=== PATIENT | female | born 2000 | race Hispanic/Latino ===

== ENCOUNTER 2021-04-03 09:29 | Outpatient (CLI) | payer BC, OTHER ==
[2021-04-03 23:06] LABS: SARS-CoV-2 PCR by NAA Not Detected (NotDetected)
== END 2021-04-03 09:30 | disposition home or self-care (01) ==
LOC: CSHLAB 09:29
PROVIDERS: ATTEND Student in an Organized Health Care Education/Training Program
DX: Z20.822 Contact with and (suspected) exposure to COVID-19 (principal)
CPT/HCPCS: U0003; U0005

== ENCOUNTER 2021-04-06 16:50 | Inpatient (IN) | payer BC, OTHER ==
[2021-04-06 12:35] LABS: Hemoglobin 11.1 g/dL (12.0-15.5); Mean Corpuscular HGB CONC 31.8 g/dL (32.0-36.0); Mean Corpuscular Hemoglobin 26.2 pg (27.0-33.0); Mean Corpuscular Volume 82.3 fl (81.6-98.3); Mean Platelet Volume 10.9 fl (7.4-10.4); Platelet Count 255 10x3/uL (150-450); RBC Distribution Width 16.1 % (11.5-14.5); Red Blood Cell (RBC) Count 4.24 10x6/uL (3.90-5.03)
[2021-04-06 12:41] VITALS: BMI 35.6
[2021-04-06 13:08] LABS: Hep B Surf Ag Non-Reactive S/CO (NonReactive); Syphilis Antibody Nonreactive (Nonreactive); Syphilis Antibody Index 0.07 S/CO (<1.00 Non-Reactive)
[2021-04-06 13:12] LABS: HBSAg Index 0.17 S/CO (0-0.99)
[~2021-04-06 16:50] MED LIST: Carboprost 250 MCG/ML AMP IM PRN; Ibuprofen 800 MG TAB PO PRN; Lactated Ringer's 1,000 ML IV SCH; Lidocaine 1% (PF) 30 ML VIAL SC PRN; Methylergonovine 0.2 MG/ML VIAL IM PRN; Misoprostol 100 MCG TAB VAG SCH; Misoprostol 200 MCG TAB PR PRN; NS w/ Oxytocin 30 units 500 ML IV SCH; Ondansetron PF 4 MG/2 ML Vial IVP PRN; Penicillin G 2.5 MILL.units 2.5 MILL.UNITS in Premix Bag 1 BAG IVPB SCH; Penicillin G Potassium 5 MILL.UNITS in Sodium Chloride 0.9% 100 ML IVPB SCH; Promethazine HCl 25 MG/ML VIAL IM PRN; hydrALAZINE 20 MG/ML VIAL SLOW IVP PRN
[2021-04-06] MEDS ORDERED: ceFAZolin 2 GM/Dextrose 50 ML IVPB ONE (17:33)
[2021-04-06] MEDS ORDERED: Oxytocin 10 UNITS/ML VIAL ONE (17:36)
[2021-04-06] MEDS ORDERED: Bupivacaine 0.25% HCL 30 ML VIAL ONE (17:41)
[2021-04-06] MEDS ORDERED: Fentanyl 100 MCG/2 ML VIAL ONE ×2 (17:41→19:56)
[2021-04-06] MEDS ORDERED: Ketorolac Tromethamine 30 MG/ML VIAL ONE (17:53)
[2021-04-06] MEDS ORDERED: Dexamethasone 4 mg/ml Vial ONE (17:53)
[2021-04-06] MEDS ORDERED: Ondansetron PF 4 MG/2 ML Vial ONE (17:53)
[2021-04-06 18:03] LABS: pH (Cord, venous) 7.064 (7.250-7.350)
[2021-04-06] MEDS ORDERED: Azithromycin 500 MG VIAL ONE ×2 (18:04→18:09)
[2021-04-06] MEDS ORDERED: Erythromycin Base 0.5% Oint 1 GM TUBE ONE (18:04)
[2021-04-06] MEDS ORDERED: Phytonadione Neonatal 1 MG/0.5 ML AMP ONE (18:05)
[2021-04-06] MEDS ORDERED: Ondansetron HCl/PF 4 MG/2 ML Vial IVP PRN (18:49)
[2021-04-06] MEDS ORDERED: HYDROmorphone 2 MG/ML VIAL SLOW IVP PRN (18:49)
[2021-04-06] MEDS ORDERED: Hydrocerin (Eucerin) Cream 120 gm Jar TOP PRN (18:49)
[2021-04-06] MEDS ORDERED: Zolpidem Tartrate 5 MG TAB PO PRN ×2 (18:49→19:02)
[2021-04-06] MEDS ORDERED: Promethazine HCl 25 MG SUPP PR PRN (18:49)
[2021-04-06] MEDS ORDERED: diphenhydrAMINE 50 MG/ML VIAL IM PRN ×2 (18:49→19:02)
[2021-04-06] MEDS ORDERED: diphenhydrAMINE 50 MG/ML VIAL IVP PRN ×3 (18:49→19:02)
[2021-04-06] MEDS ORDERED: Meperidine HCl/PF 25 MG/ML VIAL SLOW IVP PRN (18:49)
[2021-04-06] MEDS ORDERED: Fentanyl 100 MCG/2 ML VIAL SLOW IVP PRN (18:49)
[2021-04-06] MEDS ORDERED: Ondansetron PF 4 MG/2 ML Vial IVP PRN ×4 (18:49→21:54)
[2021-04-06] MEDS ORDERED: Naloxone HCl 0.4 mg/ml Vial IVP PRN ×2 (18:49)
[2021-04-06] MEDS ORDERED: Naloxone HCl 0.4 mg/ml Vial IV PRN ×3 (18:49→19:02)
[2021-04-06] MEDS ORDERED: diphenhydrAMINE 25 MG CAP PO PRN ×3 (18:49→21:54)
[2021-04-06] MEDS ORDERED: Promethazine HCl 25 MG/ML VIAL IM PRN ×4 (18:49→21:54)
[2021-04-06] MEDS ORDERED: Communication Order-Pharmacy FS SCH ×3 (19:00→19:15)
[2021-04-06] MEDS ORDERED: HYDROmorphone 10 mg/100 ml CADD IVPB PRN (19:02)
[2021-04-06] MEDS ORDERED: HYDROmorphone 40 MG/20 ML 10 MG in Sodium Chloride 0.9% 45 ML IV PRN (19:30)
[2021-04-06] MEDS ORDERED: hydrALAZINE 20 MG/ML VIAL SLOW IVP PRN (21:54)
[2021-04-06] MEDS ORDERED: Methylergonovine 0.2 MG/ML VIAL IM PRN (21:54)
[2021-04-06] MEDS ORDERED: NS w/ Oxytocin 30 units 500 ML IV SCH (21:54)
[2021-04-06] MEDS ORDERED: Simethicone Chewable 80 MG TAB PO PRN (21:54)
[2021-04-06] MEDS ORDERED: Boostrix 0.5 ML (Tdap) VIAL IM ONE (21:54)
[2021-04-06] MEDS ORDERED: Misoprostol 200 MCG TAB PR PRN (21:54)
[2021-04-06] MEDS: Docusate 100 MG CAP PO SCH (23:12)
[2021-04-06] MEDS: Ferrous Sulfate 325 MG TAB PO SCH (23:13)
[2021-04-06] MEDS: Lactated Ringer's 1,000 ML IV SCH (23:13)
[2021-04-07] MEDS: Ketorolac Tromethamine 30 MG/ML VIAL IVP SCH ×4 (00:29→21:40)
[2021-04-07] MEDS ORDERED: Succinylcholine 200 MG/10 ml SYRINGE FS ONE (02:35)
[2021-04-07] MEDS ORDERED: EPINEPHrine 1 MG/ML AMP ONE (02:35)
[2021-04-07] MEDS ORDERED: Oxytocin 10 UNITS/ML VIAL ONE (02:35)
[2021-04-07 04:39] LABS: Hemoglobin 9.7 g/dL (12.0-15.5); Mean Corpuscular HGB CONC 32.4 g/dL (32.0-36.0); Mean Corpuscular Hemoglobin 26.4 pg (27.0-33.0); Mean Corpuscular Volume 81.3 fl (81.6-98.3); Platelet Count 252 10x3/uL (150-450); RBC Distribution Width 16.3 % (11.5-14.5); Red Blood Cell (RBC) Count 3.68 10x6/uL (3.90-5.03); White Blood Cell (WBC) Count 12.7 10x3/uL (3.5-10.5)
[2021-04-07] MEDS: Ferrous Sulfate 325 MG TAB PO SCH ×2 (09:21→21:54)
[2021-04-07] MEDS: Docusate 100 MG CAP PO SCH ×2 (09:21→21:54)
[2021-04-07] MEDS: Lactated Ringer's 1,000 ML IV SCH ×2 (09:38→15:57)
[2021-04-07] MEDS ORDERED: HYDROcodone/Acetaminophen 5/325 mg Tablet PO PRN (11:24)
[2021-04-07] MEDS: Acetaminophen 325 MG TAB PO PRN ×2 (11:57→20:41)
[2021-04-07] MEDS: Ibuprofen 800 MG TAB PO SCH (21:53)
[2021-04-08] MEDS: Acetaminophen 325 MG TAB PO PRN (01:21)
[2021-04-08] MEDS: Ibuprofen 800 MG TAB PO SCH (06:50)
[2021-04-08] MEDS ORDERED: Lanolin Ointment 7 GM TUBE TOP PRN (07:07)
[2021-04-08] MEDS: Lactated Ringer's 1,000 ML IV SCH (07:34)
[2021-04-08 07:39] VITALS: BP 111/58; TEMP 98.7
[2021-04-08] MEDS: Ferrous Sulfate 325 MG TAB PO SCH (08:07)
[2021-04-08] MEDS: Docusate 100 MG CAP PO SCH (08:08)
== END 2021-04-08 13:30 | disposition home or self-care (01) | DRG 786 ==
LOC: CSHLD/OP 16:50 → CSHLD 16:55 → CSHPP 21:30
PROVIDERS: ADMIT Family Medicine; ATTEND Family Medicine
PROC: 10D00Z1 Extraction of Products of Conception, Low, Open Approach (ICD-10-PCS; principal; 2021-04-07)
DX: O99.824 Streptococcus B carrier state complicating childbirth (principal); O41.1230 Chorioamnionitis, third trimester, not applicable or unspecified; O98.52 Other viral diseases complicating childbirth; Z3A.41 41 weeks gestation of pregnancy; Z37.0 Single live birth; O76 Abnormality in fetal heart rate and rhythm complicating labor and delivery; O77.0 Labor and delivery complicated by meconium in amniotic fluid; A60.9 Anogenital herpesviral infection, unspecified; O99.214 Obesity complicating childbirth; Z87.440 Personal history of urinary (tract) infections
CPT/HCPCS: 36415; 51702; 82805; 85027; 86780; 86850; 86900; 86901; 87340; 88307; 88312; 99285; J0171; J1100; J1170; J1885; J2405; J2590; J3010; J3490; S0020; U0003; U0005

== ENCOUNTER 2021-04-11 14:25 | Emergency (ER) | payer BC, OTHER ==
[2021-04-11 15:50] LABS: #Eosinphils 0.2 10x3/uL (0.0-0.5); #Monocytes 0.6 10x3/uL (0.0-1.1); #Neutrophils 7.1 10x3/uL (1.5-8.4); %Basophils 0.2 % (0.0-2.0); %Eosinophils 1.9 % (0.0-6.0); %Lymphocytes 17.3 % (18.0-47.0); %Neutrophils 73.7 % (40.0-75.0); Hemoglobin 10.7 g/dL (12.0-15.5); Mean Corpuscular HGB CONC 31.5 g/dL (32.0-36.0); Mean Corpuscular Hemoglobin 26.3 pg (27.0-33.0); Mean Corpuscular Volume 83.5 fl (81.6-98.3); Mean Platelet Volume 9.8 fl (7.4-10.4); Platelet Count 333 10x3/uL (150-450); RBC Distribution Width 17.9 % (11.5-14.5); Red Blood Cell (RBC) Count 4.07 10x6/uL (3.90-5.03); White Blood Cell (WBC) Count 9.7 10x3/uL (3.5-10.5)
[2021-04-11 16:11] LABS: ALT (SGPT) 21 U/L (8-55); AST (SGOT) 20 U/L (5-30); Albumin 3.6 g/dL (3.5-5.0); Alkaline Phosphatase 162 U/L (40-100); Anion Gap 14 mmol/L (10-20); BUN (Urea Nitrogen) 8 mg/dL (8.4-21.0); Bilirubin, Total 0.6 mg/dL (0.2-1.2); Calc. Creatinine Clearance 0 mL/min (70-130); Calcium 8.5 mg/dL (7.8-10.44); Carbon Dioxide 23 mmol/L (22-29); Chloride 108 mmol/L (98-107); Glucose 108 mg/dL (70-105); Potassium 3.6 mmol/L (3.5-5.1); Protein, Total 6.6 g/dL (6.0-8.3); Sodium 141 mmol/L (136-145)
[2021-04-11 16:33] LABS: Bilirubin Neg (Negative); Blood, Urine 250 (Negative); Clarity Clear (Clear); Glucose, Urine (Dipstick) Normal (Negative); Ketone, Urine Negative (Negative); Leukocyte Negative (Negative); Nitrite Negative (Negative); Protein, Urine (Dipstick) 15 mg/dl (Neg-Trace); Urobilinogen Normal mg/dL (Less than 2)
== END 2021-04-11 21:04 | disposition home or self-care (01) ==
LOC: CSHERS 14:25
DX: O99.893 Other specified diseases and conditions complicating puerperium (principal); R60.0 Localized edema; D64.9 Anemia, unspecified
CPT/HCPCS: 71045; 71275; 80053; 81003; 83880; 84484; 85025; 85379; 93005; 93970

== ENCOUNTER 2021-11-13 12:57 | Outpatient (CLI) | payer BC, OTHER | END 2021-11-13 12:58 | disposition home or self-care (01) | LOC: CSHULT 12:57 | PROVIDERS: ATTEND Family Medicine | DX: O09.892 Supervision of other high risk pregnancies, second trimester (principal); Z3A.22 22 weeks gestation of pregnancy | CPT/HCPCS: 76805 ==

== ENCOUNTER 2021-12-29 18:24 | Emergency (ER) | payer BC, OTHER ==
[2021-12-29 19:50] LABS: ALT (SGPT) 17 U/L (8-55); AST (SGOT) 30 U/L (5-34); Albumin 3.4 g/dL (3.5-5.0); Alkaline Phosphatase 115 U/L (40-100); Anion Gap 14 mmol/L (10-20); BUN (Urea Nitrogen) 4 mg/dL (7.0-18.7); Bilirubin, Total 0.9 mg/dL (0.2-1.2); Calc. Creatinine Clearance 0 mL/min (70-130); Calcium 8.5 mg/dL (7.8-10.44); Carbon Dioxide 18 mmol/L (22-29); Chloride 107 mmol/L (98-107); Estimated GFR 137; Globulin 3.2 g/dL (2.4-3.5); Glucose 85 mg/dL (70-105); Lipase 31 U/L (8-78); Potassium 3.8 mmol/L (3.5-5.1); Protein, Total 6.6 g/dL (6.0-8.3); Sodium 135 mmol/L (136-145)
[2021-12-29 19:51] LABS: Hemoglobin 10.9 g/dL (12.0-15.5); Mean Corpuscular HGB CONC 32.3 g/dL (32.0-36.0); Mean Corpuscular Hemoglobin 25.7 pg (27.0-33.0); Mean Corpuscular Volume 79.5 fl (81.6-98.3); Mean Platelet Volume 10.6 fl (7.4-10.4); Platelet Count 212 10x3/uL (150-450); RBC Distribution Width 15.1 % (11.5-14.5); Red Blood Cell (RBC) Count 4.24 10x6/uL (3.90-5.03); White Blood Cell (WBC) Count 4.6 10x3/uL (3.5-10.5)
[2021-12-29 20:04] LABS: MDiff Complete? YES
[2021-12-29 20:10] LABS: Band 5 % (5-11); Eosinophils 1 % (0-10); Lymphocytes 52 % (28-48); Metamyelocyte 1 % (0-0); Monocytes 4 % (0-4); Neutrophil 33 % (31-61); Reactive Lymphocytes 4 % (0-10)
[2021-12-29 20:11] LABS: Anisocytosis SLIGHT = 6-15 cells (100X) (0-5/hpf); Microcytosis SLIGHT = 6-15 cells (100X) (0-5/hpf); Platelet Morphology Comment Appears Adequate
== END 2021-12-29 21:35 | disposition home or self-care (01) ==
LOC: CSHERS 18:24
DX: O99.891 Other specified diseases and conditions complicating pregnancy (principal); R07.89 Other chest pain; O99.013 Anemia complicating pregnancy, third trimester; O99.413 Diseases of the circulatory system complicating pregnancy, third trimester; R00.0 Tachycardia, unspecified; Z3A.30 30 weeks gestation of pregnancy
CPT/HCPCS: 80053; 83690; 84484; 85025; 93005

== ENCOUNTER 2022-01-23 22:08 | Day surgery (SDC) | payer BC, OTHER ==
[2022-01-23 23:13] LABS: Fetal Membranes Rupture No Membranes Rupture (No Rupture)
[2022-01-23] MEDS ORDERED: hydrALAZINE 20 MG/ML VIAL SLOW IVP PRN (23:17)
== END 2022-01-23 23:35 | disposition home or self-care (01) ==
LOC: CSHLD/OP 22:08
PROVIDERS: ATTEND Family Medicine
DX: O99.891 Other specified diseases and conditions complicating pregnancy (principal); O24.410 Gestational diabetes mellitus in pregnancy, diet controlled; O99.213 Obesity complicating pregnancy, third trimester; E66.9 Obesity, unspecified; Z3A.32 32 weeks gestation of pregnancy
CPT/HCPCS: 84112; 99283

== ENCOUNTER 2022-02-06 15:16 | Day surgery (SDC) | payer BC, OTHER ==
[2022-02-06 15:47] VITALS: BMI 32.1
[2022-02-06] MEDS ORDERED: hydrALAZINE 20 MG/ML VIAL SLOW IVP PRN (16:09)
== END 2022-02-06 19:28 | disposition home or self-care (01) ==
LOC: CSHLD/OP 15:16
PROVIDERS: ATTEND Family Medicine
DX: O46.93 Antepartum hemorrhage, unspecified, third trimester (principal); O24.410 Gestational diabetes mellitus in pregnancy, diet controlled; Z98.891 History of uterine scar from previous surgery; Z3A.35 35 weeks gestation of pregnancy
CPT/HCPCS: 76815

== ENCOUNTER 2022-03-05 22:02 | Day surgery (SDC) | payer BC, OTHER ==
[2022-03-05 22:29] VITALS: BMI 34.9
[2022-03-05] MEDS ORDERED: hydrALAZINE 20 MG/ML VIAL SLOW IVP PRN (23:16)
== END 2022-03-05 23:15 | disposition home or self-care (01) ==
LOC: CSHLD/OP 22:02
PROVIDERS: ATTEND Family Medicine
DX: O47.1 False labor at or after 37 completed weeks of gestation (principal); Z3A.38 38 weeks gestation of pregnancy
CPT/HCPCS: 99282

== ENCOUNTER 2022-03-09 07:30 | Inpatient (IN) | payer BC, OTHER ==
[2022-03-09 10:10] VITALS: BMI 34.9
[2022-03-09] MEDS ORDERED: CEFAZOLIN 2 GM in Sodium Chloride 0.9% 100 ML IVPB SCH (10:11)
[2022-03-09] MEDS ORDERED: Famotidine/PF 20 mg/2ml Vial SLOW IVP PRN (10:11)
[2022-03-09] MEDS ORDERED: Promethazine HCl 25 MG/ML VIAL IM PRN ×4 (10:11→16:56)
[2022-03-09] MEDS ORDERED: hydrALAZINE 20 MG/ML VIAL SLOW IVP PRN ×2 (10:11→16:56)
[2022-03-09] MEDS ORDERED: Ondansetron PF 4 MG/2 ML Vial IVP PRN ×4 (10:11→16:56)
[2022-03-09] MEDS ORDERED: Bicitra 30 ML UDCUP PO PRN (10:11)
[2022-03-09] MEDS ORDERED: Lactated Ringer's 1,000 ML IV SCH (10:11)
[2022-03-09] MEDS ORDERED: Ondansetron PF 4 MG/2 ML Vial ONE ×2 (10:25→10:35)
[2022-03-09] MEDS ORDERED: Moisturizing Cream (Eucerin) 113 GM JAR TOP PRN ×2 (10:27→15:36)
[2022-03-09] MEDS ORDERED: Fentanyl 100 MCG/2 ML VIAL SLOW IVP PRN (10:27)
[2022-03-09] MEDS ORDERED: Naloxone HCl 0.4 mg/ml Vial IVP PRN ×4 (10:27→15:36)
[2022-03-09] MEDS ORDERED: Naloxone HCl 0.4 mg/ml Vial IV PRN ×2 (10:27→15:36)
[2022-03-09] MEDS ORDERED: Meperidine HCl/PF 25 MG/ML VIAL SLOW IVP PRN (10:27)
[2022-03-09] MEDS ORDERED: diphenhydrAMINE 50 MG/ML VIAL IVP PRN ×2 (10:27→15:36)
[2022-03-09] MEDS ORDERED: Promethazine HCl 25 MG SUPP PR PRN ×2 (10:27→15:36)
[2022-03-09] MEDS ORDERED: Ondansetron HCl/PF 4 MG/2 ML Vial IVP PRN (10:27)
[2022-03-09] MEDS ORDERED: Ketorolac Tromethamine 30 MG/ML VIAL IVP PRN ×2 (10:27→15:36)
[2022-03-09] MEDS ORDERED: Communication Order-Pharmacy FS SCH ×2 (10:30→15:45)
[2022-03-09] MEDS ORDERED: PHENYLEPHRINE-NS 100 MCG/ML 10 ML SYRINGE ONE (10:35)
[2022-03-09] MEDS ORDERED: Morphine PF 10 MG/10 ML VIAL ONE (10:35)
[2022-03-09] MEDS ORDERED: Oxytocin 10 UNITS/ML VIAL ONE (10:35)
[2022-03-09] MEDS ORDERED: ePHEDrine Sulfate 50 MG/10 ML VIAL ONE (10:35)
[2022-03-09] MEDS ORDERED: Phenylephrine 40 MG/NS 250 ML 250 ML ONE (10:36)
[2022-03-09] MEDS ORDERED: Ketorolac Tromethamine 30 MG/ML VIAL ONE (10:36)
[2022-03-09 10:37] LABS: Hemoglobin 9.1 g/dL (12.0-15.5); Mean Corpuscular HGB CONC 31.5 g/dL (32.0-36.0); Mean Corpuscular Volume 73.2 fl (81.6-98.3); Mean Platelet Volume 10.4 fl (7.4-10.4); Platelet Count 226 10x3/uL (150-450); RBC Distribution Width 16.9 % (11.5-14.5); Red Blood Cell (RBC) Count 3.95 10x6/uL (3.90-5.03); White Blood Cell (WBC) Count 7.7 10x3/uL (3.5-10.5)
[2022-03-09 11:06] LABS: SARS-CoV-2 NAA Rapid Test Not Detected (NotDetected)
[2022-03-09 11:14] LABS: HBSAg Index 0.16 S/CO (0-0.99); Hep B Surf Ag Non-Reactive S/CO (NonReactive)
[2022-03-09 11:16] LABS: Syphilis Antibody Nonreactive (Nonreactive); Syphilis Antibody Index 0.08 S/CO (<1.00 Non-Reactive)
[2022-03-09] MEDS ORDERED: Midazolam HCl 2 mg/2 ml Vial ONE (12:52)
[2022-03-09] MEDS ORDERED: Fentanyl 100 MCG/2 ML VIAL ONE (12:52)
[2022-03-09] MEDS ORDERED: Bisacodyl 10 MG SUPP PR PRN (16:56)
[2022-03-09] MEDS ORDERED: diphenhydrAMINE 25 MG CAP PO PRN (16:56)
[2022-03-09] MEDS ORDERED: Boostrix 0.5 ML (Tdap) VIAL (>/=7 yrs of age) IM ONE (16:56)
[2022-03-09] MEDS ORDERED: Lanolin Ointment 7 GM TUBE TOP PRN (16:56)
[2022-03-09] MEDS ORDERED: Ketorolac Tromethamine 30 MG/ML VIAL IVP SCH ×2 (17:00→19:00)
[2022-03-09] MEDS ORDERED: Morphine 2 MG/ML VIAL SLOW IVP PRN (18:03)
[2022-03-09] MEDS ORDERED: Morphine 4 MG/ML VIAL SLOW IVP PRN (18:04)
[2022-03-09] MEDS: Ketorolac Tromethamine 30 MG/ML VIAL IVP SCH (19:10)
[2022-03-09] MEDS: Docusate 100 MG CAP PO SCH (21:19)
[2022-03-09] MEDS: Ferrous Sulfate 325 MG TAB PO SCH (21:19)
[2022-03-10] MEDS: Ketorolac Tromethamine 30 MG/ML VIAL IVP SCH ×3 (00:42→14:38)
[2022-03-10] MEDS ORDERED: Meperidine HCl/PF 25 MG/ML VIAL IM PRN (03:45)
[2022-03-10 05:24] LABS: Mean Corpuscular HGB CONC 30.8 g/dL (32.0-36.0); Mean Corpuscular Hemoglobin 22.8 pg (27.0-33.0); Mean Corpuscular Volume 73.9 fl (81.6-98.3); Mean Platelet Volume 10.5 fl (7.4-10.4); Platelet Count 166 10x3/uL (150-450); RBC Distribution Width 17.3 % (11.5-14.5); Red Blood Cell (RBC) Count 3.07 10x6/uL (3.90-5.03)
[2022-03-10] MEDS: Ferrous Sulfate 325 MG TAB PO SCH ×2 (08:55→21:00)
[2022-03-10] MEDS: Prenatal Vitamin 1 TAB PO SCH (08:55)
[2022-03-10] MEDS: Docusate 100 MG CAP PO SCH ×2 (08:55→21:00)
[2022-03-10] MEDS: Simethicone Chewable 80 MG TAB PO PRN ×2 (08:55→17:46)
[2022-03-10] MEDS: HYDROcodone/Acetaminophen 5/325 mg Tablet PO PRN ×4 (08:57→21:43)
[2022-03-10] MEDS: Ibuprofen 800 MG TAB PO SCH ×2 (13:32→21:00)
[2022-03-11] MEDS: HYDROcodone/Acetaminophen 5/325 mg Tablet PO PRN ×4 (01:49→23:15)
[2022-03-11] MEDS: Ibuprofen 800 MG TAB PO SCH ×3 (05:08→21:07)
[2022-03-11] MEDS: Ferrous Sulfate 325 MG TAB PO SCH ×2 (08:51→21:07)
[2022-03-11] MEDS: Prenatal Vitamin 1 TAB PO SCH (08:51)
[2022-03-11] MEDS: Docusate 100 MG CAP PO SCH ×2 (08:51→21:07)
[2022-03-12] MEDS: Ibuprofen 800 MG TAB PO SCH (05:49)
[2022-03-12 08:18] VITALS: BP 100/57; TEMP 97.5
[2022-03-12] MEDS: Docusate 100 MG CAP PO SCH (08:40)
[2022-03-12] MEDS: Prenatal Vitamin 1 TAB PO SCH (08:40)
[2022-03-12] MEDS: Ferrous Sulfate 325 MG TAB PO SCH (08:40)
== END 2022-03-12 11:15 | disposition home or self-care (01) | DRG 788 ==
LOC: CSHLD 09:38 → CSHPP 17:15
PROVIDERS: ADMIT Family Medicine; ATTEND Family Medicine
PROC: 10D00Z1 Extraction of Products of Conception, Low, Open Approach (ICD-10-PCS; principal; 2022-03-09)
DX: O34.211 Maternal care for low transverse scar from previous cesarean delivery (principal); Z37.0 Single live birth; Z3A.39 39 weeks gestation of pregnancy; D64.9 Anemia, unspecified; O99.02 Anemia complicating childbirth; Z20.822 Contact with and (suspected) exposure to COVID-19; O24.420 Gestational diabetes mellitus in childbirth, diet controlled; O99.824 Streptococcus B carrier state complicating childbirth
CPT/HCPCS: 51702; 85027; 86780; 86850; 86900; 86901; 87340; J1885; J2250; J2272; J2274; J2405; J2590; J3010; J3490; S0028; U0002

== ENCOUNTER 2023-01-03 19:48 | Emergency (ER) | payer BC, OTHER | END 2023-01-03 20:51 | disposition home or self-care (01) | LOC: CSHERS 19:48 | DX: M79.89 Other specified soft tissue disorders (principal) | CPT/HCPCS: 99283 ==

== ENCOUNTER 2024-01-01 21:42 | Emergency (ER) | payer BC ==
[2024-01-01 22:21] LABS: Bilirubin Neg (Negative); Blood, Urine 10 (Negative); Clarity Clear (Clear); Glucose, Urine (Dipstick) Normal (Negative); Ketone, Urine Negative (Negative); Leukocyte Negative (Negative); Nitrite Negative (Negative); Pregnancy Test - Urine (BHCG) Negative (Negative); Pregu Control Background? CLEAR/WHITE (CLR/WHITE); Pregu Control Bar Appear? YES (CONTROL BAR); Protein, Urine (Dipstick) Negative (Neg-Trace); Urobilinogen Normal mg/dL (Less than 2)
[2024-01-01 22:29] LABS: CAUTI Indications for Culture Pelvic or flank pain; RBC/HPF 0-3 HPF (0-3); Squamous Epithelial 0-3 HPF (0-3); WBC/HPF 0-3 HPF (0-3)
[2024-01-01 22:30] LABS: Bacteria/HPF 2+ HPF (None Seen)
[2024-01-01 22:31] LABS: Mucous/LPF Rare LPF (<2+)
[2024-01-01 22:32] LABS: Urine Culture Reflex No No
[2024-01-01] MEDS ORDERED: Ibuprofen 200 MG TAB ONE (23:20)
[2024-01-02] MEDS ORDERED: metroNIDAZOLE 500 MG TAB ONE (01:12)
== END 2024-01-02 01:20 | disposition home or self-care (01) ==
LOC: CSHERS 21:42
DX: N76.0 Acute vaginitis (principal)
CPT/HCPCS: 81001; 81025; 87480; 87510; 87660; 93005; 99284